=== PATIENT | male | born 1945 | race Two or more races ===

== ENCOUNTER 2020-02-23 18:41 | Inpatient (IN) | payer OTHER, MEDICARE ==
[~2020-02-23] VITALS: Ht 172.7 cm; Wt 92.5 kg
[2020-02-23] MEDS ORDERED: ONDANSETRON HCL 4MG/2ML INJ IV ONE (19:00)
[2020-02-23 19:13] LABS: BG BASE EXCESS -2.3 mmol/L (-2.0-2.0); BG CARBOXYHEMOGLOBIN 0.8 % (0.5-1.5); BG DEOXYHEMOGLOBIN 12.4 % (0.0-5.0); BG FRACTION INSPIRED OXYGEN 100; BG HCO3 ACT 20.2 mmol/L (22.0-26.0); BG METHEMOGLOBIN 0.1 % (0.0-1.5); BG OXYGEN SATURATION 87.5 % (92.0-98.5); BG OXYHEMOGLOBIN 86.7 % (94.0-97.0); BG PCO2 29.3 mmHg (35.0-45.0); BG PH 7.457 (7.350-7.450); BG PO2 52.3 mmHg (75.0-100.0); BG SAMPLE SITE RIGHT RADIAL; BG TOTAL HEMOGLOBIN 14.8 g/dL (12.0-18.0); BG VENT MODE MASK - NRB
[2020-02-23 19:40] LABS: HEMATOCRIT. 42.5 % (42.0-52.0); HEMOGLOBIN. 15.1 g/dL (14.0-18.0); MEAN CORPUSCULAR HEMOGLOBIN 31.7 pg (28.0-32.0); MEAN CORPUSCULAR VOLUME 88.9 fL (80.0-94.0); PLATELET 290 x1000/uL (130-400); RED BLOOD CELL COUNT 4.78 mill/uL (4.7-6.1); RED CELL DISTRIBUTION WIDTH 13.3 % (11.6-14.6)
[2020-02-23 19:45] LABS: CHLORIDE 95 mEq/L (98-107)
[2020-02-23 20:34] LABS: PLATELET ESTIMATE NORMAL
[2020-02-23] MEDS ORDERED: FUROSEMIDE 40MG/4ML VIAL IVP NR (20:45)
[2020-02-23] MEDS ORDERED: ZOLPIDEM TARTRATE 5MG TABLET PO PRN (21:30)
[2020-02-23] MEDS ORDERED: NITROGLYCERIN 0.4MG TABLET SL SL PRN (21:30)
[2020-02-23] MEDS ORDERED: DOCUSATE SODIUM 100MG CAPSULE PO PRN (21:30)
[2020-02-23] MEDS ORDERED: TRAMADOL 50MG TABLET PO PRN (21:30)
[2020-02-23] MEDS ORDERED: POTASSIUM CHLORIDE 20MEQ TABLET SR PO NR (21:30)
[2020-02-23] MEDS ORDERED: ALBUTEROL 6.7GM HFA INHALER ORI PRN (21:30)
[2020-02-23] MEDS ORDERED: CLONIDINE 0.1MG TABLET PO PRN (21:30)
[2020-02-23] MEDS ORDERED: ACETAMINOPHEN 325MG TABLET PO PRN ×2 (21:30)
[2020-02-23] MEDS ORDERED: DEXTROSE 50% WATER 50ML SYRINGE IV PRN (21:30)
[2020-02-23] MEDS ORDERED: LORAZEPAM 0.5MG TABLET PO PRN (21:30)
[2020-02-23] MEDS: GUAIFENESIN 200MG/10ML SUGAR FREE UDC PO PRN (21:55)
[2020-02-23] MEDS: MAGNESIUM/ALUMINUM HYDROXIDE/SIMETHICONE 30ML UDC PO PRN (21:55)
[2020-02-23 22:04] LABS: D-DIMER 1.04 mg/L FEU (<0.50)
[2020-02-23] MEDS: GUAIFENESIN/DM 600MG/30MG ER TAB 12HR PO SCH (22:31)
[2020-02-23] MEDS ORDERED: AZITHROMYCIN 500 MG in DEXT 5% WATER 250 ML IV SCH (23:00)
[2020-02-23 23:11] LABS: CREATINE KINASE 48 IU/L (39-308)
[2020-02-23 23:12] LABS: CREATINE KINASE MB FRACTION 1.6 ng/mL (0.5-3.6)
[2020-02-24] VITALS (13 sets, daily range): BP systolic 98–120; BP diastolic 60–72
[2020-02-24 04:30] LABS: HEMATOCRIT. 41.6 % (42.0-52.0); HEMOGLOBIN. 14.4 g/dL (14.0-18.0); MEAN CORPUSCULAR HEMOGLOBIN 31.1 pg (28.0-32.0); MEAN CORPUSCULAR VOLUME 89.5 fL (80.0-94.0); MEAN PLATELET VOLUME 8.3 fl (7.4-10.4); PLATELET 278 x1000/uL (130-400); RED BLOOD CELL COUNT 4.65 mill/uL (4.7-6.1); RED CELL DISTRIBUTION WIDTH 13.5 % (11.6-14.6)
[2020-02-24 04:34] LABS: CHLORIDE 94 mEq/L (98-107)
[2020-02-24 04:41] LABS: PHOSPHORUS 3.2 mg/dL (2.5-4.9)
[2020-02-24 04:42] LABS: CREATINE KINASE 43 IU/L (39-308)
[2020-02-24 04:45] LABS: CREATINE KINASE MB FRACTION < 1.0 ng/mL (0.5-3.6)
[2020-02-24] MEDS: BLOOD SUGAR DIAGNOSTIC STRIP TEST SCH ×4 (06:29→20:07)
[2020-02-24] MEDS: INSULIN LISPRO 100 UNITS/ML SUBCUT SCH ×4 (06:30→20:55)
[2020-02-24 07:11] LABS: PLATELET ESTIMATE NORMAL
[2020-02-24] MEDS: FUROSEMIDE 40MG/4ML VIAL IVP SCH ×2 (08:37→20:06)
[2020-02-24] MEDS: SPIRONOLACTONE 25MG TABLET PO SCH ×2 (08:42→20:07)
[2020-02-24] MEDS: GUAIFENESIN/DM 600MG/30MG ER TAB 12HR PO SCH ×2 (08:43→20:06)
[2020-02-24] MEDS: FAMOTIDINE 20MG TABLET PO SCH ×2 (08:43→20:07)
[2020-02-24] MEDS: ZINC SULFATE 220 MG ( 50 ) CAPSULE PO SCH (08:43)
[2020-02-24] MEDS: ASPIRIN 325MG EC TABLET PO SCH (08:43)
[2020-02-24] MEDS: ASCORBIC ACID 500 MG TABLET PO SCH ×2 (08:49→20:06)
[2020-02-24] MEDS ORDERED: ENOXAPARIN 40MG/0.4ML SYR SUBCUT SCH (09:00)
[2020-02-24] MEDS: MAGNESIUM/ALUMINUM HYDROXIDE/SIMETHICONE 30ML UDC PO PRN (10:50)
[2020-02-24] MEDS: ONDANSETRON HCL 4MG/2ML INJ IV PRN (10:51)
[2020-02-24 11:21] LABS: CLARITY URINE CLEAR (CLEAR); COLOR URINE YELLOW (YELLOW); KETONES URINE NEGATIVE (NEGATIVE); LEUKOCYTE ESTERASE URINE NEGATIVE (NEGATIVE); NITRITE URINE NEGATIVE (NEGATIVE); OCCULT BLOOD URINE NEGATIVE (NEGATIVE); PROTEIN URINE NEGATIVE (NEGATIVE); SPECIFIC GRAVITY URINE 1.011 (1.005-1.030); UROBILINOGEN URINE 0.2 E.U./dL (0.2-1.0)
[2020-02-24 11:45] LABS: *AMPHETAMINES SCREEN URINE NEGATIVE (NEGATIVE); *BARBITURATES SCREEN URINE NEGATIVE (NEGATIVE); *BENZODIAZEPINES SCREEN URINE NEGATIVE (NEGATIVE)
[2020-02-24 11:46] LABS: *COCAINE SCREEN URINE NEGATIVE (NEGATIVE); METHADONE URINE SCREEN NEGATIVE (NEGATIVE); OPIATES URINE SCREEN NEGATIVE (NEGATIVE); PHENCYCLIDINE URINE SCREEN NEGATIVE (NEGATIVE)
[2020-02-24 11:47] LABS: CANNABINOID URINE SCREEN NEGATIVE (NEGATIVE)
[2020-02-24] MEDS ORDERED: ALBUTEROL 6.7GM HFA INHALER ORI PRN (15:15)
[2020-02-24] MEDS ORDERED: DEXAMETHASONE 10 MG/ML VIAL PO SCH (15:15)
[2020-02-24] MEDS ORDERED: ENOXAPARIN 60MG/0.6ML SYR SUBCUT NR (15:30)
[2020-02-24] MEDS: DEXAMETHASONE 4MG TABLET PO SCH (16:29)
[2020-02-24] MEDS: AZITHROMYCIN 500 MG in DEXT 5% WATER 250 ML IV SCH (18:00)
[2020-02-24] MEDS: ENOXAPARIN 100MG/ML SYR SUBCUT SCH (20:06)
[2020-02-24 23:53] LABS: BG BASE EXCESS 2.9 mmol/L (-2.0-2.0); BG CARBOXYHEMOGLOBIN 0.5 % (0.5-1.5); BG DEOXYHEMOGLOBIN 12.5 % (0.0-5.0); BG FRACTION INSPIRED OXYGEN 100; BG HCO3 ACT 27.5 mmol/L (22.0-26.0); BG METHEMOGLOBIN 0.2 % (0.0-1.5); BG OXYGEN SATURATION 87.4 % (92.0-98.5); BG OXYHEMOGLOBIN 86.8 % (94.0-97.0); BG PCO2 42.1 mmHg (35.0-45.0); BG PH 7.433 (7.350-7.450); BG PO2 52.3 mmHg (75.0-100.0); BG SAMPLE SITE LEFT RADIAL; BG TOTAL HEMOGLOBIN 14.4 g/dL (12.0-18.0); BG VENT MODE MASK - NRB
[2020-02-25] VITALS (46 sets, daily range): BP systolic 97–135; BP diastolic 45–81
[2020-02-25 05:29] LABS: INR 1.1; PROTHROMBIN TIME 11.8 sec (9.6-11.0)
[2020-02-25] MEDS: BLOOD SUGAR DIAGNOSTIC STRIP TEST SCH ×4 (05:56→20:13)
[2020-02-25] MEDS: INSULIN LISPRO 100 UNITS/ML SUBCUT SCH ×5 (06:05→21:47)
[2020-02-25 10:51] LABS: BG BASE EXCESS 3.5 mmol/L (-2.0-2.0); BG CARBOXYHEMOGLOBIN 0.5 % (0.5-1.5); BG DEOXYHEMOGLOBIN 11.4 % (0.0-5.0); BG FRACTION INSPIRED OXYGEN 100; BG HCO3 ACT 27.3 mmol/L (22.0-26.0); BG METHEMOGLOBIN 0.3 % (0.0-1.5); BG OXYGEN SATURATION 88.5 % (92.0-98.5); BG OXYHEMOGLOBIN 87.8 % (94.0-97.0); BG PCO2 38.8 mmHg (35.0-45.0); BG PH 7.465 (7.350-7.450); BG PO2 51.2 mmHg (75.0-100.0); BG SAMPLE SITE RIGHT RADIAL; BG TOTAL HEMOGLOBIN 15.3 g/dL (12.0-18.0); BG VENT MODE MASK - NRB
[2020-02-25] MEDS: GUAIFENESIN/DM 600MG/30MG ER TAB 12HR PO SCH ×2 (12:04→20:12)
[2020-02-25] MEDS: DEXAMETHASONE 4MG TABLET PO SCH (12:04)
[2020-02-25] MEDS: ENOXAPARIN 100MG/ML SYR SUBCUT SCH ×2 (12:04→20:13)
[2020-02-25] MEDS: FAMOTIDINE 20MG TABLET PO SCH ×2 (12:04→20:12)
[2020-02-25] MEDS: ZINC SULFATE 220 MG ( 50 ) CAPSULE PO SCH (12:04)
[2020-02-25] MEDS: ASCORBIC ACID 500 MG TABLET PO SCH ×2 (12:04→20:12)
[2020-02-25] MEDS: ASPIRIN 325MG EC TABLET PO SCH (12:05)
[2020-02-25] MEDS: SPIRONOLACTONE 25MG TABLET PO SCH ×2 (12:05→20:13)
[2020-02-25] MEDS: FUROSEMIDE 40MG/4ML VIAL IVP SCH ×2 (12:05→20:12)
[2020-02-25] MEDS ORDERED: REMDESIVIR 200 MG in SODIUM CHLORIDE 0.9% 250 ML IV NR (12:30)
[2020-02-25] MEDS: AZITHROMYCIN 500 MG in DEXT 5% WATER 250 ML IV SCH (19:40)
[2020-02-26] VITALS (30 sets, daily range): BP systolic 90–187; BP diastolic 49–92
[2020-02-26] MEDS: BLOOD SUGAR DIAGNOSTIC STRIP TEST SCH ×4 (05:55→21:59)
[2020-02-26] MEDS: INSULIN LISPRO 100 UNITS/ML SUBCUT SCH ×4 (06:39→21:00)
[2020-02-26] MEDS: GUAIFENESIN/DM 600MG/30MG ER TAB 12HR PO SCH ×2 (10:18→21:58)
[2020-02-26] MEDS: FAMOTIDINE 20MG TABLET PO SCH ×2 (10:18→21:58)
[2020-02-26] MEDS: DEXAMETHASONE 4MG TABLET PO SCH (10:18)
[2020-02-26] MEDS: ZINC SULFATE 220 MG ( 50 ) CAPSULE PO SCH (10:18)
[2020-02-26] MEDS: ASCORBIC ACID 500 MG TABLET PO SCH ×2 (10:19→21:58)
[2020-02-26] MEDS: ASPIRIN 325MG EC TABLET PO SCH (10:19)
[2020-02-26] MEDS: ENOXAPARIN 100MG/ML SYR SUBCUT SCH ×2 (10:19→21:59)
[2020-02-26] MEDS: SPIRONOLACTONE 25MG TABLET PO SCH ×2 (10:19→21:59)
[2020-02-26] MEDS: FUROSEMIDE 40MG/4ML VIAL IVP SCH ×2 (10:19→22:00)
[2020-02-26] MEDS: REMDESIVIR 100 MG in SODIUM CHLORIDE 0.9% 250 ML IV SCH (12:37)
[2020-02-26] MEDS: AZITHROMYCIN 500 MG in DEXT 5% WATER 250 ML IV SCH (17:14)
[2020-02-27] VITALS (47 sets, daily range): BP systolic 91–159; BP diastolic 42–93
[2020-02-27] MEDS: BLOOD SUGAR DIAGNOSTIC STRIP TEST SCH ×4 (06:48→21:29)
[2020-02-27] MEDS: INSULIN LISPRO 100 UNITS/ML SUBCUT SCH ×4 (08:10→21:33)
[2020-02-27] MEDS: DEXAMETHASONE 4MG TABLET PO SCH (09:26)
[2020-02-27] MEDS: FUROSEMIDE 40MG/4ML VIAL IVP SCH ×2 (09:27→21:06)
[2020-02-27] MEDS: ZINC SULFATE 220 MG ( 50 ) CAPSULE PO SCH (09:28)
[2020-02-27] MEDS: ASCORBIC ACID 500 MG TABLET PO SCH ×2 (09:28→21:07)
[2020-02-27] MEDS: ENOXAPARIN 100MG/ML SYR SUBCUT SCH ×2 (09:28→21:07)
[2020-02-27] MEDS: SPIRONOLACTONE 25MG TABLET PO SCH ×2 (09:28→21:07)
[2020-02-27] MEDS: FAMOTIDINE 20MG TABLET PO SCH ×2 (09:28→21:07)
[2020-02-27] MEDS: ASPIRIN 325MG EC TABLET PO SCH (09:28)
[2020-02-27] MEDS: GUAIFENESIN/DM 600MG/30MG ER TAB 12HR PO SCH ×2 (09:28→20:42)
[2020-02-27 09:54] LABS: HEMOGLOBIN. 15.3 g/dL (14.0-18.0); MEAN CORPUSCULAR HEMOGLOBIN 32.1 pg (28.0-32.0); MEAN CORPUSCULAR VOLUME 92.6 fL (80.0-94.0); PLATELET 376 x1000/uL (130-400); RED BLOOD CELL COUNT 4.76 mill/uL (4.7-6.1); RED CELL DISTRIBUTION WIDTH 13.7 % (11.6-14.6)
[2020-02-27 10:03] LABS: CHLORIDE 96 mEq/L (98-107)
[2020-02-27] MEDS: REMDESIVIR 100 MG in SODIUM CHLORIDE 0.9% 250 ML IV SCH (10:54)
[2020-02-27 12:34] LABS: PLATELET ESTIMATE NORMAL
[2020-02-27 15:31] LABS: BG CARBOXYHEMOGLOBIN 0.8 % (0.5-1.5); BG DEOXYHEMOGLOBIN 16.4 % (0.0-5.0); BG FRACTION INSPIRED OXYGEN 99.8; BG HCO3 ACT 26.5 mmol/L (22.0-26.0); BG METHEMOGLOBIN 0.1 % (0.0-1.5); BG OXYGEN SATURATION 83.5 % (92.0-98.5); BG OXYHEMOGLOBIN 82.7 % (94.0-97.0); BG PCO2 33.7 mmHg (35.0-45.0); BG PH 7.514 (7.350-7.450); BG PO2 45.6 mmHg (75.0-100.0); BG SAMPLE SITE RIGHT BRACHIAL; BG TOTAL HEMOGLOBIN 14.9 g/dL (12.0-18.0); BG VENT MODE MASK - NRB
[2020-02-27] MEDS: PROPOFOL 10MG/ML 100ML 100 ML IV PRN ×2 (19:01→21:26)
[2020-02-27] MEDS ORDERED: NOREPINEPHRINE 8 MG in DEXT 5% WATER 242 ML IV PRN (19:15)
[2020-02-27 20:41] LABS: BG BASE EXCESS 1.8 mmol/L (-2.0-2.0); BG CARBOXYHEMOGLOBIN 0.7 % (0.5-1.5); BG DEOXYHEMOGLOBIN 1.5 % (0.0-5.0); BG FRACTION INSPIRED OXYGEN 100; BG HCO3 ACT 25.6 mmol/L (22.0-26.0); BG METHEMOGLOBIN 0.2 % (0.0-1.5); BG OXYGEN SATURATION 98.5 % (92.0-98.5); BG OXYHEMOGLOBIN 97.6 % (94.0-97.0); BG PCO2 37.5 mmHg (35.0-45.0); BG PH 7.452 (7.350-7.450); BG PIP 24 cmH2O; BG PO2 131.5 mmHg (75.0-100.0); BG SAMPLE SITE RIGHT BRACHIAL; BG TIDAL VOLUME(mL) 500 mL; BG TOTAL HEMOGLOBIN 14.9 g/dL (12.0-18.0); BG VENT MODE PRVC16; BG VENT RATE 16 set
[2020-02-27] MEDS: POTASSIUM CHLORIDE INJ 40 MEQ in DEXT 5% WATER 250 ML IV NR ×2 (20:57→21:57)
[2020-02-27] MEDS: AZITHROMYCIN 500 MG in DEXT 5% WATER 250 ML IV SCH (21:05)
[2020-02-28] VITALS (96 sets, daily range): BP systolic 83–128; BP diastolic 36–87
[2020-02-28] MEDS: PROPOFOL 10MG/ML 100ML 100 ML IV PRN ×3 (02:06→20:28)
[2020-02-28] MEDS: BLOOD SUGAR DIAGNOSTIC STRIP TEST SCH ×4 (05:16→23:54)
[2020-02-28] MEDS: INSULIN LISPRO 100 UNITS/ML SUBCUT SCH ×4 (05:17→23:53)
[2020-02-28 05:50] LABS: CHLORIDE 98 mEq/L (98-107)
[2020-02-28 05:52] LABS: HEMATOCRIT. 41.3 % (42.0-52.0); HEMOGLOBIN. 14.2 g/dL (14.0-18.0); MEAN CORPUSCULAR HEMOGLOBIN 32.4 pg (28.0-32.0); MEAN CORPUSCULAR VOLUME 94.4 fL (80.0-94.0); PLATELET 318 x1000/uL (130-400); RED BLOOD CELL COUNT 4.38 mill/uL (4.7-6.1); RED CELL DISTRIBUTION WIDTH 14.2 % (11.6-14.6)
[2020-02-28] MEDS: FUROSEMIDE 40MG/4ML VIAL IVP SCH ×2 (08:19→21:04)
[2020-02-28] MEDS: DEXAMETHASONE 4MG TABLET PO SCH (08:20)
[2020-02-28] MEDS: SPIRONOLACTONE 25MG TABLET PO SCH ×2 (08:21→21:05)
[2020-02-28] MEDS: FAMOTIDINE 20MG TABLET PO SCH ×2 (08:21→21:05)
[2020-02-28] MEDS: ZINC SULFATE 220 MG ( 50 ) CAPSULE PO SCH (08:21)
[2020-02-28] MEDS: ENOXAPARIN 100MG/ML SYR SUBCUT SCH ×2 (08:22→21:04)
[2020-02-28] MEDS: ASPIRIN 325MG EC TABLET PO SCH (08:33)
[2020-02-28] MEDS: GUAIFENESIN/DM 600MG/30MG ER TAB 12HR PO SCH ×2 (08:34→21:00)
[2020-02-28] MEDS: ASCORBIC ACID 500 MG TABLET PO SCH ×2 (08:34→21:04)
[2020-02-28] MEDS ORDERED: LIDOCAINE HCL 1% 20ML VIAL (Pyxis) INJ ONE (09:33)
[2020-02-28] MEDS: IPRATROPIUM/ALBUTEROL 0.5-3(2.5)MG/3ML NEB HHN SCH ×4 (10:15→20:45)
[2020-02-28 10:33] LABS: BG BASE EXCESS 2.7 mmol/L (-2.0-2.0); BG CARBOXYHEMOGLOBIN 1.1 % (0.5-1.5); BG DEOXYHEMOGLOBIN 6.5 % (0.0-5.0); BG FRACTION INSPIRED OXYGEN 100; BG HCO3 ACT 27.1 mmol/L (22.0-26.0); BG METHEMOGLOBIN 0.3 % (0.0-1.5); BG OXYGEN SATURATION 93.4 % (92.0-98.5); BG OXYHEMOGLOBIN 92.1 % (94.0-97.0); BG PCO2 41.1 mmHg (35.0-45.0); BG PH 7.437 (7.350-7.450); BG SAMPLE SITE LEFT RADIAL; BG TIDAL VOLUME(mL) 500 mL; BG TOTAL HEMOGLOBIN 14.9 g/dL (12.0-18.0); BG VENT MODE VENT - A/C; BG VENT RATE 14 set
[2020-02-28] MEDS: REMDESIVIR 100 MG in SODIUM CHLORIDE 0.9% 250 ML IV SCH (10:56)
[2020-02-28] MEDS ORDERED: NOREPINEPHRINE 32 MG in DEXT 5% WATER 468 ML IV PRN (11:30)
[2020-02-28 11:54] LABS: PLATELET ESTIMATE NORMAL
[2020-02-28] MEDS: FENTANYL CITRATE/PF 1,000 MCG in SODIUM CHLORIDE 0.9% 80 ML IV PRN (14:48)
[2020-02-29] VITALS (102 sets, daily range): BP systolic 52–188; BP diastolic 28–152
[2020-02-29] MEDS: IPRATROPIUM/ALBUTEROL 0.5-3(2.5)MG/3ML NEB HHN SCH ×4 (01:05→21:10)
[2020-02-29] MEDS: FENTANYL CITRATE/PF 1,000 MCG in SODIUM CHLORIDE 0.9% 80 ML IV PRN (01:19)
[2020-02-29] MEDS: PROPOFOL 10MG/ML 100ML 100 ML IV PRN ×2 (03:25→09:16)
[2020-02-29 05:58] LABS: CHLORIDE 102 mEq/L (98-107)
[2020-02-29 05:59] LABS: HEMOGLOBIN. 14.6 g/dL (14.0-18.0); MEAN CORPUSCULAR HEMOGLOBIN 31.6 pg (28.0-32.0); MEAN CORPUSCULAR VOLUME 93.4 fL (80.0-94.0); MEAN PLATELET VOLUME 8.9 fl (7.4-10.4); PLATELET 336 x1000/uL (130-400); RED BLOOD CELL COUNT 4.61 mill/uL (4.7-6.1); RED CELL DISTRIBUTION WIDTH 13.8 % (11.6-14.6)
[2020-02-29] MEDS: INSULIN LISPRO 100 UNITS/ML SUBCUT SCH ×3 (06:00→17:43)
[2020-02-29] MEDS: BLOOD SUGAR DIAGNOSTIC STRIP TEST SCH ×3 (06:17→17:15)
[2020-02-29] MEDS: GUAIFENESIN/DM 600MG/30MG ER TAB 12HR PO SCH ×2 (09:00→21:00)
[2020-02-29] MEDS: ASPIRIN 325MG EC TABLET PO SCH (09:00)
[2020-02-29] MEDS: ZINC SULFATE 220 MG ( 50 ) CAPSULE PO SCH (09:05)
[2020-02-29] MEDS: FAMOTIDINE 20MG TABLET PO SCH ×2 (09:05→21:00)
[2020-02-29] MEDS: DEXAMETHASONE 10 MG/ML VIAL IV SCH (09:05)
[2020-02-29] MEDS: FUROSEMIDE 40MG/4ML VIAL IVP SCH ×2 (09:05→21:37)
[2020-02-29] MEDS: ASCORBIC ACID 500 MG TABLET PO SCH ×2 (09:06→21:38)
[2020-02-29] MEDS: SPIRONOLACTONE 25MG TABLET PO SCH ×2 (09:06→21:28)
[2020-02-29] MEDS: ENOXAPARIN 100MG/ML SYR SUBCUT SCH ×2 (09:07→21:37)
[2020-02-29 09:52] LABS: BG BASE EXCESS 1.3 mmol/L (-2.0-2.0); BG CARBOXYHEMOGLOBIN 0.6 % (0.5-1.5); BG DEOXYHEMOGLOBIN 2.4 % (0.0-5.0); BG FRACTION INSPIRED OXYGEN 100; BG HCO3 ACT 25.7 mmol/L (22.0-26.0); BG METHEMOGLOBIN 0.3 % (0.0-1.5); BG OXYGEN SATURATION 97.6 % (92.0-98.5); BG OXYHEMOGLOBIN 96.7 % (94.0-97.0); BG PCO2 40.1 mmHg (35.0-45.0); BG PH 7.425 (7.350-7.450); BG PO2 100.7 mmHg (75.0-100.0); BG SAMPLE SITE RIGHT RADIAL; BG TIDAL VOLUME(mL) 500 mL; BG TOTAL HEMOGLOBIN 15.3 g/dL (12.0-18.0); BG VENT MODE VENT - A/C PRVC; BG VENT RATE 14 set
[2020-02-29 10:44] LABS: PLATELET ESTIMATE NORMAL
[2020-02-29] MEDS ORDERED: DILTIAZEM HCL 5MG/ML 5ML VIAL IV NR (11:17)
[2020-02-29] MEDS ORDERED: DILTIAZEM HCL 5MG/ML 5ML VIAL IV ONE (11:23)
[2020-02-29] MEDS ORDERED: SODIUM CHLORIDE 0.9% 500 ML IV ONE (12:00)
[2020-02-29] MEDS: REMDESIVIR 100 MG in SODIUM CHLORIDE 0.9% 250 ML IV SCH (13:18)
[2020-02-29] MEDS: DILTIAZEM HCL 125 MG in DEXT 5% WATER 100 ML IV PRN ×2 (13:19→18:32)
[2020-02-29] MEDS: PHENYLEPHRINE 40 MG in DEXT 5% WATER 246 ML IV PRN ×2 (13:23→21:40)
[2020-02-29] MEDS: DILTIAZEM HCL 30MG TABLET PO SCH ×2 (14:00→21:40)
[2020-02-29] MEDS ORDERED: PROPOFOL 10MG/ML 100ML 100 ML IV PRN (19:45)
[2020-02-29] MEDS ORDERED: ASPI-1497 PO (21:00)
[2020-02-29] MEDS ORDERED: OLME1TAB27 PO (21:00)
[2020-03-01] VITALS (96 sets, daily range): BP systolic 87–155; BP diastolic 52–86
[2020-03-01] MEDS: PROPOFOL 10MG/ML 100ML 100 ML IV PRN ×5 (00:38→20:48)
[2020-03-01] MEDS: BLOOD SUGAR DIAGNOSTIC STRIP TEST SCH ×5 (01:27→23:31)
[2020-03-01] MEDS: INSULIN LISPRO 100 UNITS/ML SUBCUT SCH ×5 (01:30→23:39)
[2020-03-01] MEDS: PHENYLEPHRINE 40 MG in DEXT 5% WATER 246 ML IV PRN ×3 (03:45→17:58)
[2020-03-01] MEDS: DILTIAZEM HCL 125 MG in DEXT 5% WATER 100 ML IV PRN ×3 (03:45→23:47)
[2020-03-01] MEDS: DILTIAZEM HCL 30MG TABLET PO SCH ×3 (05:33→20:43)
[2020-03-01] MEDS: FENTANYL CITRATE/PF 1,000 MCG in SODIUM CHLORIDE 0.9% 80 ML IV PRN (05:49)
[2020-03-01 05:55] LABS: CHLORIDE 102 mEq/L (98-107)
[2020-03-01 06:16] LABS: HEMATOCRIT. 45.3 % (42.0-52.0); HEMOGLOBIN. 15.1 g/dL (14.0-18.0); MEAN CORPUSCULAR HEMOGLOBIN 30.9 pg (28.0-32.0); MEAN CORPUSCULAR VOLUME 92.6 fL (80.0-94.0); MEAN PLATELET VOLUME 9.3 fl (7.4-10.4); PLATELET 426 x1000/uL (130-400); RED BLOOD CELL COUNT 4.89 mill/uL (4.7-6.1)
[2020-03-01] MEDS: GUAIFENESIN/DM 600MG/30MG ER TAB 12HR PO SCH ×2 (09:00→20:42)
[2020-03-01] MEDS: DEXAMETHASONE 10 MG/ML VIAL IV SCH (09:23)
[2020-03-01] MEDS: FUROSEMIDE 40MG/4ML VIAL IVP SCH (09:23)
[2020-03-01] MEDS: ACETAMINOPHEN 650MG/20.3ML UDC NG PRN (09:23)
[2020-03-01] MEDS: ZINC SULFATE 220 MG ( 50 ) CAPSULE PO SCH (09:23)
[2020-03-01] MEDS: ASPIRIN 325MG EC TABLET PO SCH (09:23)
[2020-03-01] MEDS: ASCORBIC ACID 500 MG TABLET PO SCH ×2 (09:23→20:42)
[2020-03-01 09:30] LABS: BG DEOXYHEMOGLOBIN 8.4 % (0.0-5.0); BG FRACTION INSPIRED OXYGEN 100; BG HCO3 ACT 26.5 mmol/L (22.0-26.0); BG METHEMOGLOBIN 0.4 % (0.0-1.5); BG OXYGEN SATURATION 91.5 % (92.0-98.5); BG OXYHEMOGLOBIN 90.2 % (94.0-97.0); BG PCO2 40.8 mmHg (35.0-45.0); BG PO2 58.1 mmHg (75.0-100.0); BG SAMPLE SITE LEFT RADIAL; BG TIDAL VOLUME(mL) 500 mL; BG TOTAL HEMOGLOBIN 15.3 g/dL (12.0-18.0); BG VENT MODE VENT - A/C; BG VENT RATE 14 set
[2020-03-01] MEDS ORDERED: DOCUSATE SODIUM 100MG CAPSULE NG PRN (09:30)
[2020-03-01] MEDS: IPRATROPIUM/ALBUTEROL 0.5-3(2.5)MG/3ML NEB HHN SCH ×2 (09:33→21:25)
[2020-03-01] MEDS: FAMOTIDINE 20MG TABLET PO SCH ×2 (10:22→20:42)
[2020-03-01] MEDS: ENOXAPARIN 100MG/ML SYR SUBCUT SCH ×2 (10:22→20:42)
[2020-03-01] MEDS: SPIRONOLACTONE 25MG TABLET PO SCH (10:29)
[2020-03-01 13:46] LABS: PLATELET ESTIMATE INCREASED
[2020-03-01] MEDS ORDERED: VANCOMYCIN 1500MG in DEXTROSE 5% WATER 250ML IV NR (16:00)
[2020-03-01] MEDS: CEFEPIME 1,000 MG in DEXTROSE 5% WATER 50 ML IV SCH (16:09)
[2020-03-02] VITALS (97 sets, daily range): BP systolic 94–132; BP diastolic 55–79
[2020-03-02] MEDS: IPRATROPIUM/ALBUTEROL 0.5-3(2.5)MG/3ML NEB HHN SCH ×4 (00:20→21:50)
[2020-03-02] MEDS: PHENYLEPHRINE 40 MG in DEXT 5% WATER 246 ML IV PRN ×4 (00:36→22:23)
[2020-03-02] MEDS: PROPOFOL 10MG/ML 100ML 100 ML IV PRN ×4 (02:57→22:20)
[2020-03-02] MEDS: CEFEPIME 1,000 MG in DEXTROSE 5% WATER 50 ML IV SCH ×2 (03:31→15:01)
[2020-03-02] MEDS: ACETAMINOPHEN 650MG/20.3ML UDC NG PRN ×2 (03:42→16:30)
[2020-03-02] MEDS: FENTANYL CITRATE/PF 1,000 MCG in SODIUM CHLORIDE 0.9% 80 ML IV PRN (05:01)
[2020-03-02] MEDS: DILTIAZEM HCL 30MG TABLET PO SCH ×3 (05:18→21:04)
[2020-03-02] MEDS: BLOOD SUGAR DIAGNOSTIC STRIP TEST SCH ×3 (05:18→17:37)
[2020-03-02 05:22] LABS: HEMATOCRIT. 41.6 % (42.0-52.0); MEAN CORPUSCULAR HEMOGLOBIN 30.8 pg (28.0-32.0); MEAN CORPUSCULAR VOLUME 91.9 fL (80.0-94.0); MEAN PLATELET VOLUME 9.1 fl (7.4-10.4); PLATELET 355 x1000/uL (130-400); RED BLOOD CELL COUNT 4.53 mill/uL (4.7-6.1); RED CELL DISTRIBUTION WIDTH 13.9 % (11.6-14.6)
[2020-03-02] MEDS: INSULIN LISPRO 100 UNITS/ML SUBCUT SCH ×3 (05:55→17:47)
[2020-03-02] MEDS ORDERED: VANCOMYCIN 750 MG PREMIX 150 ML IV SCH (06:00)
[2020-03-02] MEDS: ZINC SULFATE 220 MG ( 50 ) CAPSULE PO SCH (08:38)
[2020-03-02] MEDS: FAMOTIDINE 20MG TABLET PO SCH ×2 (08:38→21:03)
[2020-03-02] MEDS: ASCORBIC ACID 500 MG TABLET PO SCH ×2 (08:38→21:04)
[2020-03-02] MEDS: ENOXAPARIN 100MG/ML SYR SUBCUT SCH ×2 (08:38→21:05)
[2020-03-02] MEDS: GUAIFENESIN/DM 600MG/30MG ER TAB 12HR PO SCH ×2 (08:39→21:00)
[2020-03-02] MEDS: DEXAMETHASONE 10 MG/ML VIAL IV SCH (08:39)
[2020-03-02] MEDS: ASPIRIN 81MG EC TABLET PO SCH ×2 (08:39→16:31)
[2020-03-02 09:16] LABS: BG BASE EXCESS 5.9 mmol/L (-2.0-2.0); BG CARBOXYHEMOGLOBIN 0.9 % (0.5-1.5); BG DEOXYHEMOGLOBIN 1.5 % (0.0-5.0); BG FRACTION INSPIRED OXYGEN 100; BG HCO3 ACT 32.1 mmol/L (22.0-26.0); BG METHEMOGLOBIN 0.3 % (0.0-1.5); BG OXYGEN SATURATION 98.5 % (92.0-98.5); BG OXYHEMOGLOBIN 97.3 % (94.0-97.0); BG PCO2 52.8 mmHg (35.0-45.0); BG PH 7.402 (7.350-7.450); BG PO2 125.2 mmHg (75.0-100.0); BG SAMPLE SITE RIGHT RADIAL; BG TIDAL VOLUME(mL) 500 mL; BG VENT MODE VENT- PRVC; BG VENT RATE 14 set
[2020-03-02 11:04] LABS: PLATELET ESTIMATE NORMAL
[2020-03-02] MEDS ORDERED: PROPOFOL 10MG/ML 100ML 100 ML IV PRN (14:00)
[2020-03-02] MEDS: DILTIAZEM HCL 125 MG in DEXT 5% WATER 100 ML IV PRN (14:59)
[2020-03-02] MEDS: VANCOMYCIN 1250MG in DEXTROSE 5% WATER 250ML IV SCH (17:42)
[2020-03-03] VITALS (94 sets, daily range): BP systolic 91–171; BP diastolic 52–89
[2020-03-03] MEDS: BLOOD SUGAR DIAGNOSTIC STRIP TEST SCH ×4 (00:10→18:11)
[2020-03-03] MEDS: INSULIN LISPRO 100 UNITS/ML SUBCUT SCH ×4 (00:26→18:17)
[2020-03-03] MEDS: IPRATROPIUM/ALBUTEROL 0.5-3(2.5)MG/3ML NEB HHN SCH ×4 (03:05→20:50)
[2020-03-03] MEDS: PROPOFOL 10MG/ML 100ML 100 ML IV PRN ×5 (03:14→21:28)
[2020-03-03] MEDS: CEFEPIME 1,000 MG in DEXTROSE 5% WATER 50 ML IV SCH ×2 (03:51→16:04)
[2020-03-03] MEDS: FENTANYL CITRATE/PF 1,000 MCG in SODIUM CHLORIDE 0.9% 80 ML IV PRN (04:29)
[2020-03-03] MEDS: DILTIAZEM HCL 30MG TABLET PO SCH ×3 (05:35→21:24)
[2020-03-03] MEDS: GUAIFENESIN/DM 600MG/30MG ER TAB 12HR PO SCH ×2 (09:00→21:26)
[2020-03-03 09:43] LABS: BG BASE EXCESS 3.1 mmol/L (-2.0-2.0); BG CARBOXYHEMOGLOBIN 0.8 % (0.5-1.5); BG DEOXYHEMOGLOBIN 3.5 % (0.0-5.0); BG FRACTION INSPIRED OXYGEN 100; BG HCO3 ACT 28.7 mmol/L (22.0-26.0); BG METHEMOGLOBIN 0.3 % (0.0-1.5); BG OXYGEN SATURATION 96.5 % (92.0-98.5); BG OXYHEMOGLOBIN 95.4 % (94.0-97.0); BG PCO2 47.3 mmHg (35.0-45.0); BG PH 7.401 (7.350-7.450); BG PO2 83.8 mmHg (75.0-100.0); BG SAMPLE SITE RIGHT RADIAL; BG TIDAL VOLUME(mL) 450 mL; BG TOTAL HEMOGLOBIN 14.3 g/dL (12.0-18.0); BG VENT MODE VENT - A/C-PRVC; BG VENT RATE 16 set
[2020-03-03] MEDS: ASPIRIN 81MG TABLET NG SCH ×2 (09:59→21:23)
[2020-03-03] MEDS: ENOXAPARIN 100MG/ML SYR SUBCUT SCH ×2 (10:00→21:26)
[2020-03-03] MEDS: FAMOTIDINE 20MG TABLET PO SCH ×2 (10:00→21:23)
[2020-03-03] MEDS: ASCORBIC ACID 500 MG TABLET PO SCH ×2 (10:00→21:23)
[2020-03-03] MEDS: ZINC SULFATE 220 MG ( 50 ) CAPSULE PO SCH (10:00)
[2020-03-03] MEDS: DEXAMETHASONE 10 MG/ML VIAL IV SCH (10:00)
[2020-03-03] MEDS: ACETAMINOPHEN 650MG/20.3ML UDC NG PRN (10:00)
[2020-03-03] MEDS: VANCOMYCIN 1250MG in DEXTROSE 5% WATER 250ML IV SCH (12:56)
[2020-03-03] MEDS: PHENYLEPHRINE 40 MG in DEXT 5% WATER 246 ML IV PRN (14:13)
[2020-03-03] MEDS: DILTIAZEM HCL 125 MG in DEXT 5% WATER 100 ML IV PRN (17:06)
[2020-03-04] VITALS (95 sets, daily range): BP systolic 95–135; BP diastolic 50–86
[2020-03-04] MEDS: BLOOD SUGAR DIAGNOSTIC STRIP TEST SCH ×4 (00:23→18:05)
[2020-03-04] MEDS: IPRATROPIUM/ALBUTEROL 0.5-3(2.5)MG/3ML NEB HHN SCH ×2 (00:51→21:05)
[2020-03-04] MEDS: CEFEPIME 1,000 MG in DEXTROSE 5% WATER 50 ML IV SCH ×2 (04:32→15:11)
[2020-03-04] MEDS: FENTANYL CITRATE/PF 1,000 MCG in SODIUM CHLORIDE 0.9% 80 ML IV PRN ×2 (04:34→18:01)
[2020-03-04] MEDS: PROPOFOL 10MG/ML 100ML 100 ML IV PRN ×5 (05:15→23:00)
[2020-03-04] MEDS: INSULIN LISPRO 100 UNITS/ML SUBCUT SCH ×4 (05:47→18:04)
[2020-03-04] MEDS: DILTIAZEM HCL 30MG TABLET PO SCH ×3 (05:47→20:36)
[2020-03-04] MEDS: VANCOMYCIN 1250MG in DEXTROSE 5% WATER 250ML IV SCH (05:48)
[2020-03-04 06:08] LABS: CHLORIDE 99 mEq/L (98-107)
[2020-03-04 06:27] LABS: VANCOMYCIN TROUGH 11.7 ug/mL (5.0-10.0)
[2020-03-04] MEDS: GUAIFENESIN/DM 600MG/30MG ER TAB 12HR PO SCH ×2 (09:00→20:35)
[2020-03-04] MEDS: ASPIRIN 81MG TABLET NG SCH ×2 (09:52→20:40)
[2020-03-04] MEDS: ENOXAPARIN 100MG/ML SYR SUBCUT SCH ×2 (09:52→20:35)
[2020-03-04] MEDS: FAMOTIDINE 20MG TABLET PO SCH ×2 (09:52→21:20)
[2020-03-04] MEDS: DEXAMETHASONE 10 MG/ML VIAL IV SCH (09:52)
[2020-03-04] MEDS: ZINC SULFATE 220 MG ( 50 ) CAPSULE PO SCH (09:52)
[2020-03-04] MEDS: ASCORBIC ACID 500 MG TABLET PO SCH ×2 (09:52→20:35)
[2020-03-04] MEDS: ACETAMINOPHEN 650MG/20.3ML UDC NG PRN ×3 (09:52→20:40)
[2020-03-04 10:22] LABS: BG BASE EXCESS 6.6 mmol/L (-2.0-2.0); BG CARBOXYHEMOGLOBIN 0.6 % (0.5-1.5); BG DEOXYHEMOGLOBIN 3.8 % (0.0-5.0); BG FRACTION INSPIRED OXYGEN 100; BG HCO3 ACT 33.7 mmol/L (22.0-26.0); BG METHEMOGLOBIN 0.2 % (0.0-1.5); BG OXYGEN SATURATION 96.2 % (92.0-98.5); BG OXYHEMOGLOBIN 95.4 % (94.0-97.0); BG PCO2 58.3 mmHg (35.0-45.0); BG PO2 85.9 mmHg (75.0-100.0); BG SAMPLE SITE RIGHT RADIAL; BG TIDAL VOLUME(mL) 450 mL; BG TOTAL HEMOGLOBIN 14.7 g/dL (12.0-18.0); BG VENT MODE VENT - A/C; BG VENT RATE 16 set
[2020-03-04] MEDS: PHENYLEPHRINE 40 MG in DEXT 5% WATER 246 ML IV PRN (12:24)
[2020-03-04] MEDS: DILTIAZEM HCL 125 MG in DEXT 5% WATER 100 ML IV PRN (12:24)
[2020-03-04] MEDS ORDERED: DIGOXIN 500MCG/2ML AMP IV SCH (16:15)
[2020-03-04 17:08] LABS: BG CARBOXYHEMOGLOBIN 0.7 % (0.5-1.5); BG DEOXYHEMOGLOBIN 19.8 % (0.0-5.0); BG FRACTION INSPIRED OXYGEN 100; BG HCO3 ACT 33.1 mmol/L (22.0-26.0); BG METHEMOGLOBIN 0.2 % (0.0-1.5); BG OXYHEMOGLOBIN 79.3 % (94.0-97.0); BG PCO2 70.4 mmHg (35.0-45.0); BG PO2 47.9 mmHg (75.0-100.0); BG SAMPLE SITE RIGHT RADIAL; BG TIDAL VOLUME(mL) 450 mL; BG TOTAL HEMOGLOBIN 15.1 g/dL (12.0-18.0); BG VENT MODE VENT - A/C; BG VENT RATE 16 set
[2020-03-04] MEDS: VANCOMYCIN 1 G PREMIX 200 ML IV SCH (18:00)
[2020-03-04 19:34] LABS: BG CARBOXYHEMOGLOBIN 0.9 % (0.5-1.5); BG FRACTION INSPIRED OXYGEN 100; BG HCO3 ACT 30.8 mmol/L (22.0-26.0); BG METHEMOGLOBIN 0.3 % (0.0-1.5); BG OXYGEN SATURATION 76.7 % (92.0-98.5); BG OXYHEMOGLOBIN 75.8 % (94.0-97.0); BG PCO2 72.1 mmHg (35.0-45.0); BG PH 7.248 (7.350-7.450); BG PO2 45.8 mmHg (75.0-100.0); BG SAMPLE SITE RIGHT RADIAL; BG TIDAL VOLUME(mL) 450 mL; BG TOTAL HEMOGLOBIN 16.1 g/dL (12.0-18.0); BG VENT MODE VENT - A/C; BG VENT RATE 22 set
[2020-03-04] MEDS ORDERED: DIGOXIN 500MCG/2ML AMP IV NR (19:53)
[2020-03-04 20:03] LABS: HEMATOCRIT 44.5 % (42.0-52.0); HEMOGLOBIN 14.9 g/dL (14.0-18.0)
[2020-03-04] MEDS ORDERED: AMIODARONE HCL 900 MG in DEXT 5% WATER 482 ML IV PRN (22:15)
[2020-03-04 22:58] LABS: BG BASE EXCESS 0.6 mmol/L (-2.0-2.0); BG CARBOXYHEMOGLOBIN 0.9 % (0.5-1.5); BG DEOXYHEMOGLOBIN 23.4 % (0.0-5.0); BG FRACTION INSPIRED OXYGEN 100; BG HCO3 ACT 31.7 mmol/L (22.0-26.0); BG METHEMOGLOBIN 0.3 % (0.0-1.5); BG OXYGEN SATURATION 76.3 % (92.0-98.5); BG OXYHEMOGLOBIN 75.4 % (94.0-97.0); BG PCO2 85.4 mmHg (35.0-45.0); BG PH 7.188 (7.350-7.450); BG PO2 46.8 mmHg (75.0-100.0); BG SAMPLE SITE RIGHT RADIAL; BG TIDAL VOLUME(mL) 450 mL; BG TOTAL HEMOGLOBIN 15.2 g/dL (12.0-18.0); BG VENT MODE VENT- PRVC; BG VENT RATE 30 set
[2020-03-05] VITALS (97 sets, daily range): BP systolic 62–150; BP diastolic 34–97
[2020-03-05] MEDS ORDERED: SODIUM BICARBONATE 8.4% 1 MEQ/ML 50ML SYR IV NR
[2020-03-05] MEDS: BLOOD SUGAR DIAGNOSTIC STRIP TEST SCH ×4 (00:47→17:15)
[2020-03-05] MEDS: INSULIN LISPRO 100 UNITS/ML SUBCUT SCH ×4 (01:16→17:26)
[2020-03-05] MEDS: FENTANYL CITRATE/PF 1,000 MCG in SODIUM CHLORIDE 0.9% 80 ML IV PRN ×3 (01:18→17:14)
[2020-03-05] MEDS: IPRATROPIUM/ALBUTEROL 0.5-3(2.5)MG/3ML NEB HHN SCH ×4 (01:25→20:50)
[2020-03-05 01:43] LABS: HEMATOCRIT 40.1 % (42.0-52.0); HEMOGLOBIN 13.4 g/dL (14.0-18.0)
[2020-03-05] MEDS: PROPOFOL 10MG/ML 100ML 100 ML IV PRN ×4 (03:35→19:53)
[2020-03-05] MEDS: CEFEPIME 1,000 MG in DEXTROSE 5% WATER 50 ML IV SCH (03:36)
[2020-03-05] MEDS: VANCOMYCIN 1 G PREMIX 200 ML IV SCH (05:42)
[2020-03-05 05:52] LABS: HEMATOCRIT. 40.3 % (42.0-52.0); HEMOGLOBIN. 13.5 g/dL (14.0-18.0); MEAN CORPUSCULAR HEMOGLOBIN 30.6 pg (28.0-32.0); MEAN CORPUSCULAR VOLUME 91.6 fL (80.0-94.0); MEAN PLATELET VOLUME 9.8 fl (7.4-10.4); PLATELET 214 x1000/uL (130-400); RED CELL DISTRIBUTION WIDTH 13.4 % (11.6-14.6)
[2020-03-05] MEDS: DILTIAZEM HCL 30MG TABLET PO SCH ×3 (06:20→22:02)
[2020-03-05 08:44] LABS: PLATELET ESTIMATE NORMAL
[2020-03-05] MEDS: ZINC SULFATE 220 MG ( 50 ) CAPSULE PO SCH (08:54)
[2020-03-05] MEDS: PANTOPRAZOLE 80 MG in SODIUM CHLORIDE 0.9% 100 ML IV SCH ×2 (08:54→14:05)
[2020-03-05] MEDS: DEXAMETHASONE 10 MG/ML VIAL IV SCH (08:54)
[2020-03-05] MEDS: FAMOTIDINE 20MG TABLET PO SCH ×2 (08:55→20:50)
[2020-03-05] MEDS: ASCORBIC ACID 500 MG TABLET PO SCH ×2 (08:55→20:50)
[2020-03-05] MEDS: ENOXAPARIN 100MG/ML SYR SUBCUT SCH (09:00)
[2020-03-05] MEDS: ASPIRIN 81MG TABLET NG SCH ×2 (09:00→20:40)
[2020-03-05] MEDS ORDERED: SODIUM POLYSTYRENE SULFONATE 15 G/60 ML BOT PO NR (09:00)
[2020-03-05] MEDS: GUAIFENESIN/DM 600MG/30MG ER TAB 12HR PO SCH ×2 (09:00→20:40)
[2020-03-05] MEDS ORDERED: VASOPRESSIN 10 UNIT in SODIUM CHLORIDE 0.9% 99.5 ML IV PRN (11:30)
[2020-03-05 12:17] LABS: BG BASE EXCESS 3.5 mmol/L (-2.0-2.0); BG CARBOXYHEMOGLOBIN 0.8 % (0.5-1.5); BG DEOXYHEMOGLOBIN 3.8 % (0.0-5.0); BG FRACTION INSPIRED OXYGEN 100; BG HCO3 ACT 31.5 mmol/L (22.0-26.0); BG METHEMOGLOBIN 0.2 % (0.0-1.5); BG OXYGEN SATURATION 96.2 % (92.0-98.5); BG OXYHEMOGLOBIN 95.2 % (94.0-97.0); BG PH 7.317 (7.350-7.450); BG PO2 87.7 mmHg (75.0-100.0); BG SAMPLE SITE RIGHT BRACHIAL; BG TIDAL VOLUME(mL) 450 mL; BG TOTAL HEMOGLOBIN 14.3 g/dL (12.0-18.0); BG VENT MODE VENT- PRVC; BG VENT RATE 30 set
[2020-03-05] MEDS: ACETAMINOPHEN 650MG/20.3ML UDC NG PRN ×2 (12:44→17:41)
[2020-03-05] MEDS ORDERED: LIDOCAINE HCL 1% 20ML VIAL (Pyxis) INJ ONE (13:18)
[2020-03-05] MEDS: PHENYLEPHRINE 40 MG in DEXT 5% WATER 246 ML IV PRN ×2 (14:07→18:41)
[2020-03-05] MEDS: DIGOXIN 500MCG/2ML AMP IV SCH ×3 (15:17→20:50)
[2020-03-05 17:11] LABS: BG BASE EXCESS 2.8 mmol/L (-2.0-2.0); BG CARBOXYHEMOGLOBIN 0.5 % (0.5-1.5); BG DEOXYHEMOGLOBIN 6.9 % (0.0-5.0); BG FRACTION INSPIRED OXYGEN 100; BG HCO3 ACT 29.8 mmol/L (22.0-26.0); BG METHEMOGLOBIN 0.3 % (0.0-1.5); BG OXYHEMOGLOBIN 92.3 % (94.0-97.0); BG PH 7.344 (7.350-7.450); BG SAMPLE SITE RIGHT RADIAL; BG TIDAL VOLUME(mL) 450 mL; BG VENT MODE VENT - A/C PRVC; BG VENT RATE 30 set
[2020-03-05] MEDS: MEROPENEM 500 MG in SODIUM CHLORIDE 0.9% 50 ML IV SCH (17:14)
[2020-03-05] MEDS: COLISTIMETHATE SODIUM 150MG/VIAL INH SCH (17:27)
[2020-03-06] VITALS (97 sets, daily range): BP systolic 83–157; BP diastolic 37–91
[2020-03-06] MEDS: PHENYLEPHRINE 40 MG in DEXT 5% WATER 246 ML IV PRN ×4 (00:48→18:24)
[2020-03-06] MEDS: BLOOD SUGAR DIAGNOSTIC STRIP TEST SCH ×4 (00:52→18:00)
[2020-03-06] MEDS: IPRATROPIUM/ALBUTEROL 0.5-3(2.5)MG/3ML NEB HHN SCH ×4 (00:55→21:45)
[2020-03-06] MEDS: ACETAMINOPHEN 650MG/20.3ML UDC NG PRN ×3 (00:58→23:14)
[2020-03-06] MEDS: INSULIN LISPRO 100 UNITS/ML SUBCUT SCH ×4 (00:59→18:19)
[2020-03-06] MEDS: PROPOFOL 10MG/ML 100ML 100 ML IV PRN ×6 (01:11→23:12)
[2020-03-06] MEDS: PANTOPRAZOLE 80 MG in SODIUM CHLORIDE 0.9% 100 ML IV SCH (02:16)
[2020-03-06] MEDS: MEROPENEM 500 MG in SODIUM CHLORIDE 0.9% 50 ML IV SCH ×2 (04:30→16:08)
[2020-03-06] MEDS: COLISTIMETHATE SODIUM 150MG/VIAL INH SCH ×3 (05:00→21:55)
[2020-03-06 05:40] LABS: HEMOGLOBIN. 13.1 g/dL (14.0-18.0); MEAN CORPUSCULAR HEMOGLOBIN 30.8 pg (28.0-32.0); MEAN CORPUSCULAR VOLUME 91.6 fL (80.0-94.0); MEAN PLATELET VOLUME 10.3 fl (7.4-10.4); PLATELET 250 x1000/uL (130-400); RED BLOOD CELL COUNT 4.25 mill/uL (4.7-6.1); RED CELL DISTRIBUTION WIDTH 13.4 % (11.6-14.6)
[2020-03-06] MEDS: DILTIAZEM HCL 30MG TABLET PO SCH ×3 (05:46→23:09)
[2020-03-06 05:55] LABS: CHLORIDE 90 mEq/L (98-107)
[2020-03-06 06:31] LABS: DIGOXIN 2.9 ng/mL (0.9-2.0)
[2020-03-06] MEDS: ASCORBIC ACID 500 MG TABLET PO SCH ×2 (08:34→21:00)
[2020-03-06] MEDS: FAMOTIDINE 20MG TABLET PO SCH ×2 (08:34→23:08)
[2020-03-06] MEDS: DEXAMETHASONE 10 MG/ML VIAL IV SCH (08:34)
[2020-03-06] MEDS: ZINC SULFATE 220 MG ( 50 ) CAPSULE PO SCH (08:34)
[2020-03-06] MEDS: GUAIFENESIN/DM 600MG/30MG ER TAB 12HR PO SCH (09:00)
[2020-03-06] MEDS: ASPIRIN 81MG TABLET NG SCH (09:00)
[2020-03-06] MEDS ORDERED: PANTOPRAZOLE 80 MG in SODIUM CHLORIDE 0.9% 100 ML IV SCH (10:00)
[2020-03-06 10:35] LABS: NUCLEATED RED BLOOD CELLS 2 /100 WBC
[2020-03-06 10:36] LABS: PLATELET ESTIMATE NORMAL
[2020-03-06] MEDS: DILTIAZEM HCL 125 MG in DEXT 5% WATER 100 ML IV PRN (10:39)
[2020-03-06] MEDS ORDERED: BISACODYL 10MG SUPP PR PRN (10:45)
[2020-03-06] MEDS ORDERED: BISACODYL 10MG SUPP PR NR (10:45)
[2020-03-06] MEDS: FENTANYL CITRATE/PF 1,000 MCG in SODIUM CHLORIDE 0.9% 80 ML IV PRN ×2 (12:17→18:59)
[2020-03-06] MEDS: METOCLOPRAMIDE HCL 10MG/2ML VIAL IV SCH ×3 (12:21→23:09)
[2020-03-06] MEDS: PANTOPRAZOLE SODIUM 40 MG/VIAL IV SCH ×2 (12:49→23:08)
[2020-03-06] MEDS: ONDANSETRON HCL 4MG/2ML INJ IV PRN (23:12)
[2020-03-06] MEDS: GUAIFENESIN 200MG/10ML SUGAR FREE UDC PO PRN (23:14)
[2020-03-07] VITALS (98 sets, daily range): BP systolic 83–170; BP diastolic 46–113
[2020-03-07] MEDS: PROPOFOL 10MG/ML 100ML 100 ML IV PRN ×2 (02:07→06:15)
[2020-03-07] MEDS: MEROPENEM 500 MG in SODIUM CHLORIDE 0.9% 50 ML IV SCH ×2 (04:48→16:38)
[2020-03-07 05:47] LABS: HEMATOCRIT. 34.7 % (42.0-52.0); HEMOGLOBIN. 11.7 g/dL (14.0-18.0); MEAN CORPUSCULAR HEMOGLOBIN 30.9 pg (28.0-32.0); MEAN CORPUSCULAR VOLUME 91.5 fL (80.0-94.0); MEAN PLATELET VOLUME 9.7 fl (7.4-10.4); PLATELET 173 x1000/uL (130-400); RED CELL DISTRIBUTION WIDTH 13.3 % (11.6-14.6)
[2020-03-07] MEDS: METOCLOPRAMIDE HCL 10MG/2ML VIAL IV SCH ×4 (06:00→21:06)
[2020-03-07] MEDS: BLOOD SUGAR DIAGNOSTIC STRIP TEST SCH ×4 (06:00→16:38)
[2020-03-07] MEDS: INSULIN LISPRO 100 UNITS/ML SUBCUT SCH ×4 (06:00→16:42)
[2020-03-07] MEDS: ONDANSETRON HCL 4MG/2ML INJ IV PRN ×2 (06:10→21:06)
[2020-03-07] MEDS: GUAIFENESIN 200MG/10ML SUGAR FREE UDC PO PRN ×2 (06:11→21:07)
[2020-03-07] MEDS: ACETAMINOPHEN 650MG/20.3ML UDC NG PRN ×3 (06:11→21:10)
[2020-03-07] MEDS: DILTIAZEM HCL 30MG TABLET PO SCH ×2 (06:13→13:00)
[2020-03-07 07:49] LABS: CHLORIDE 101 mEq/L (98-107)
[2020-03-07] MEDS: ASCORBIC ACID 500 MG TABLET PO SCH ×2 (08:20→21:03)
[2020-03-07] MEDS: PANTOPRAZOLE SODIUM 40 MG/VIAL IV SCH ×2 (08:20→21:02)
[2020-03-07] MEDS: ZINC SULFATE 220 MG ( 50 ) CAPSULE PO SCH (08:20)
[2020-03-07] MEDS: DEXAMETHASONE 10 MG/ML VIAL IV SCH (08:20)
[2020-03-07] MEDS: IPRATROPIUM/ALBUTEROL 0.5-3(2.5)MG/3ML NEB HHN SCH ×3 (08:21→20:21)
[2020-03-07] MEDS: COLISTIMETHATE SODIUM 150MG/VIAL INH SCH ×2 (08:21→20:21)
[2020-03-07 09:19] LABS: NUCLEATED RED BLOOD CELLS 3 /100 WBC; PLATELET ESTIMATE NORMAL
[2020-03-07 09:40] LABS: BG BASE EXCESS -1.1 mmol/L (-2.0-2.0); BG CARBOXYHEMOGLOBIN 0.5 % (0.5-1.5); BG DEOXYHEMOGLOBIN 4.8 % (0.0-5.0); BG FRACTION INSPIRED OXYGEN 90; BG HCO3 ACT 22.9 mmol/L (22.0-26.0); BG METHEMOGLOBIN 0.2 % (0.0-1.5); BG OXYGEN SATURATION 95.2 % (92.0-98.5); BG OXYHEMOGLOBIN 94.5 % (94.0-97.0); BG PCO2 35.9 mmHg (35.0-45.0); BG PH 7.423 (7.350-7.450); BG PO2 76.5 mmHg (75.0-100.0); BG SAMPLE SITE RIGHT RADIAL; BG TIDAL VOLUME(mL) 450 mL; BG TOTAL HEMOGLOBIN 11.1 g/dL (12.0-18.0); BG VENT MODE VENT- PRVC; BG VENT RATE 30 set
[2020-03-07] MEDS ORDERED: NA PHOS,M-B/NA PHOS,DI-BA ENEMA 118ML PR PRN (11:30)
[2020-03-07] MEDS: FENTANYL CITRATE/PF 1,000 MCG in SODIUM CHLORIDE 0.9% 80 ML IV PRN ×2 (12:52→21:09)
[2020-03-07] MEDS: MIDAZOLAM HCL 100 MG in DEXT 5% WATER 80 ML IV PRN (13:10)
[2020-03-07] MEDS ORDERED: DILTIAZEM HCL 5MG/ML 5ML VIAL IV NR ×2 (13:54→14:30)
[2020-03-07] MEDS ORDERED: DOCUSATE SODIUM SUGAR FREE 100MG/10ML UDC NG PRN (14:32)
[2020-03-07] MEDS: DILTIAZEM HCL 125 MG in DEXT 5% WATER 100 ML IV PRN (15:23)
[2020-03-07] MEDS: DILTIAZEM HCL 60MG TABLET PO SCH (21:04)
[2020-03-08] VITALS (96 sets, daily range): BP systolic 54–154; BP diastolic 32–72
[2020-03-08] MEDS: DILTIAZEM HCL 125 MG in DEXT 5% WATER 100 ML IV PRN ×3 (00:01→17:06)
[2020-03-08] MEDS: IPRATROPIUM/ALBUTEROL 0.5-3(2.5)MG/3ML NEB HHN SCH ×2 (00:59→09:16)
[2020-03-08] MEDS: MIDAZOLAM HCL 100 MG in DEXT 5% WATER 80 ML IV PRN ×4 (01:14→21:38)
[2020-03-08] MEDS: FENTANYL CITRATE/PF 1,000 MCG in SODIUM CHLORIDE 0.9% 80 ML IV PRN ×3 (01:17→18:02)
[2020-03-08] MEDS: MEROPENEM 500 MG in SODIUM CHLORIDE 0.9% 50 ML IV SCH ×2 (05:00→17:07)
[2020-03-08] MEDS: DILTIAZEM HCL 60MG TABLET PO SCH ×3 (05:00→21:01)
[2020-03-08] MEDS: INSULIN LISPRO 100 UNITS/ML SUBCUT SCH ×5 (05:01→23:12)
[2020-03-08] MEDS: METOCLOPRAMIDE HCL 10MG/2ML VIAL IV SCH ×4 (05:01→23:11)
[2020-03-08] MEDS: ONDANSETRON HCL 4MG/2ML INJ IV PRN (05:03)
[2020-03-08] MEDS: GUAIFENESIN 200MG/10ML SUGAR FREE UDC PO PRN (05:03)
[2020-03-08 05:48] LABS: HEMATOCRIT. 35.7 % (42.0-52.0); HEMOGLOBIN. 11.8 g/dL (14.0-18.0); MEAN CORPUSCULAR HEMOGLOBIN 30.4 pg (28.0-32.0); MEAN CORPUSCULAR VOLUME 91.5 fL (80.0-94.0); PLATELET 158 x1000/uL (130-400); RED CELL DISTRIBUTION WIDTH 13.6 % (11.6-14.6)
[2020-03-08 06:00] LABS: PHOSPHORUS 6.2 mg/dL (2.5-4.9)
[2020-03-08] MEDS: BLOOD SUGAR DIAGNOSTIC STRIP TEST SCH ×4 (06:00→18:01)
[2020-03-08] MEDS: PANTOPRAZOLE SODIUM 40 MG/VIAL IV SCH ×2 (08:45→21:01)
[2020-03-08] MEDS: DEXAMETHASONE 10 MG/ML VIAL IV SCH (08:45)
[2020-03-08] MEDS: ASCORBIC ACID 500 MG TABLET PO SCH ×2 (08:46→21:01)
[2020-03-08] MEDS: ZINC SULFATE 220 MG ( 50 ) CAPSULE PO SCH (08:46)
[2020-03-08] MEDS ORDERED: SODIUM POLYSTYRENE SULFONATE 15 G/60 ML BOT NG SCH (09:00)
[2020-03-08] MEDS: COLISTIMETHATE SODIUM 150MG/VIAL INH SCH ×2 (09:16→20:56)
[2020-03-08 09:55] LABS: BG BASE EXCESS -1.6 mmol/L (-2.0-2.0); BG CARBOXYHEMOGLOBIN 0.8 % (0.5-1.5); BG DEOXYHEMOGLOBIN 9.3 % (0.0-5.0); BG FRACTION INSPIRED OXYGEN 90; BG HCO3 ACT 26.3 mmol/L (22.0-26.0); BG METHEMOGLOBIN 0.4 % (0.0-1.5); BG OXYGEN SATURATION 90.6 % (92.0-98.5); BG OXYHEMOGLOBIN 89.5 % (94.0-97.0); BG PCO2 58.8 mmHg (35.0-45.0); BG PH 7.268 (7.350-7.450); BG PO2 66.1 mmHg (75.0-100.0); BG SAMPLE SITE RIGHT RADIAL; BG TIDAL VOLUME(mL) 450 mL; BG TOTAL HEMOGLOBIN 12.8 g/dL (12.0-18.0); BG VENT MODE VENT- PRVC; BG VENT RATE 30 set
[2020-03-08 10:51] LABS: NUCLEATED RED BLOOD CELLS 13 /100 WBC; PLATELET ESTIMATE NORMAL
[2020-03-08] MEDS: IPRATROPIUM BROMIDE (0.02%) 0.5MG/2.5ML NEB HHN SCH ×2 (12:56→21:23)
[2020-03-08] MEDS: ACETAMINOPHEN 650MG/20.3ML UDC NG PRN (18:21)
[2020-03-08] MEDS: PHENYLEPHRINE 40 MG in DEXT 5% WATER 246 ML IV PRN (21:01)
[2020-03-09] VITALS (88 sets, daily range): BP systolic 101–143; BP diastolic 54–89
[2020-03-09] MEDS: IPRATROPIUM BROMIDE (0.02%) 0.5MG/2.5ML NEB HHN SCH ×4 (01:01→21:27)
[2020-03-09 05:15] LABS: MEAN CORPUSCULAR HEMOGLOBIN 30.5 pg (28.0-32.0); MEAN CORPUSCULAR VOLUME 91.2 fL (80.0-94.0); PLATELET 118 x1000/uL (130-400); RED BLOOD CELL COUNT 3.95 mill/uL (4.7-6.1); RED CELL DISTRIBUTION WIDTH 13.7 % (11.6-14.6)
[2020-03-09] MEDS: MEROPENEM 500 MG in SODIUM CHLORIDE 0.9% 50 ML IV SCH ×2 (05:35→17:00)
[2020-03-09] MEDS: METOCLOPRAMIDE HCL 10MG/2ML VIAL IV SCH ×3 (05:36→18:36)
[2020-03-09] MEDS: FENTANYL CITRATE/PF 1,000 MCG in SODIUM CHLORIDE 0.9% 80 ML IV PRN ×2 (05:36→13:09)
[2020-03-09] MEDS: DILTIAZEM HCL 60MG TABLET PO SCH ×3 (05:37→21:44)
[2020-03-09] MEDS: INSULIN LISPRO 100 UNITS/ML SUBCUT SCH ×3 (05:38→18:37)
[2020-03-09 05:54] LABS: PHOSPHORUS 8.1 mg/dL (2.5-4.9)
[2020-03-09] MEDS: MIDAZOLAM HCL 100 MG in DEXT 5% WATER 80 ML IV PRN ×2 (07:49→19:33)
[2020-03-09 09:32] LABS: BG BASE EXCESS -2.9 mmol/L (-2.0-2.0); BG CARBOXYHEMOGLOBIN 0.3 % (0.5-1.5); BG DEOXYHEMOGLOBIN 8.2 % (0.0-5.0); BG FRACTION INSPIRED OXYGEN 100; BG HCO3 ACT 22.6 mmol/L (22.0-26.0); BG METHEMOGLOBIN 0.3 % (0.0-1.5); BG OXYGEN SATURATION 91.8 % (92.0-98.5); BG OXYHEMOGLOBIN 91.2 % (94.0-97.0); BG PCO2 41.7 mmHg (35.0-45.0); BG PH 7.351 (7.350-7.450); BG PO2 66.3 mmHg (75.0-100.0); BG SAMPLE SITE RIGHT RADIAL; BG TIDAL VOLUME(mL) 500 mL; BG TOTAL HEMOGLOBIN 12.7 g/dL (12.0-18.0); BG VENT MODE VENT - A/C; BG VENT RATE 30 set
[2020-03-09] MEDS: PANTOPRAZOLE SODIUM 40 MG/VIAL IV SCH ×2 (09:46→21:43)
[2020-03-09] MEDS: ASCORBIC ACID 500 MG TABLET PO SCH ×2 (09:46→21:43)
[2020-03-09] MEDS: ZINC SULFATE 220 MG ( 50 ) CAPSULE PO SCH (09:46)
[2020-03-09] MEDS: COLISTIMETHATE SODIUM 150MG/VIAL INH SCH ×2 (10:43→21:26)
[2020-03-09] MEDS: BLOOD SUGAR DIAGNOSTIC STRIP TEST SCH ×3 (12:00→18:37)
[2020-03-09 12:44] LABS: NUCLEATED RED BLOOD CELLS 1 /100 WBC; PLATELET ESTIMATE DECREASED
[2020-03-10] VITALS (92 sets, daily range): BP systolic 76–145; BP diastolic 53–74
[2020-03-10] MEDS: BLOOD SUGAR DIAGNOSTIC STRIP TEST SCH ×4 (00:08→17:20)
[2020-03-10] MEDS: FENTANYL CITRATE/PF 1,000 MCG in SODIUM CHLORIDE 0.9% 80 ML IV PRN ×4 (00:09→20:28)
[2020-03-10] MEDS: INSULIN LISPRO 100 UNITS/ML SUBCUT SCH ×4 (00:16→17:30)
[2020-03-10] MEDS: METOCLOPRAMIDE HCL 10MG/2ML VIAL IV SCH ×4 (00:16→17:29)
[2020-03-10] MEDS: IPRATROPIUM BROMIDE (0.02%) 0.5MG/2.5ML NEB HHN SCH ×6 (00:52→23:46)
[2020-03-10] MEDS: DILTIAZEM HCL 60MG TABLET PO SCH ×3 (06:12→22:00)
[2020-03-10 06:13] LABS: CHLORIDE 99 mEq/L (98-107)
[2020-03-10] MEDS: ACETAMINOPHEN 650MG/20.3ML UDC NG PRN (06:20)
[2020-03-10 06:42] LABS: D-DIMER 19.56 mg/L FEU (<0.50)
[2020-03-10 07:13] LABS: PHOSPHORUS 10.3 mg/dL (2.5-4.9)
[2020-03-10 08:57] LABS: BG CARBOXYHEMOGLOBIN 0.4 % (0.5-1.5); BG DEOXYHEMOGLOBIN 4.4 % (0.0-5.0); BG FRACTION INSPIRED OXYGEN 100; BG METHEMOGLOBIN 0.4 % (0.0-1.5); BG OXYGEN SATURATION 95.6 % (92.0-98.5); BG OXYHEMOGLOBIN 94.8 % (94.0-97.0); BG PCO2 51.8 mmHg (35.0-45.0); BG PH 7.301 (7.350-7.450); BG PO2 92.5 mmHg (75.0-100.0); BG SAMPLE SITE RIGHT RADIAL; BG TIDAL VOLUME(mL) 500 mL; BG TOTAL HEMOGLOBIN 12.8 g/dL (12.0-18.0); BG VENT MODE VENT - PRVC; BG VENT RATE 30 set
[2020-03-10] MEDS ORDERED: ENOXAPARIN 100MG/ML SYR SUBCUT SCH (09:00)
[2020-03-10] MEDS: COLISTIMETHATE SODIUM 150MG/VIAL INH SCH (09:07)
[2020-03-10] MEDS: PANTOPRAZOLE SODIUM 40 MG/VIAL IV SCH ×2 (09:15→22:38)
[2020-03-10] MEDS: ASCORBIC ACID 500 MG TABLET PO SCH ×2 (09:15→22:38)
[2020-03-10] MEDS: ZINC SULFATE 220 MG ( 50 ) CAPSULE PO SCH (09:15)
[2020-03-10 10:00] LABS: HEMATOCRIT. 35.4 % (42.0-52.0); HEMOGLOBIN. 11.8 g/dL (14.0-18.0); MEAN CORPUSCULAR HEMOGLOBIN 30.2 pg (28.0-32.0); MEAN CORPUSCULAR VOLUME 90.5 fL (80.0-94.0); MEAN PLATELET VOLUME 10.4 fl (7.4-10.4); PLATELET 138 x1000/uL (130-400); RED BLOOD CELL COUNT 3.91 mill/uL (4.7-6.1); RED CELL DISTRIBUTION WIDTH 14.1 % (11.6-14.6)
[2020-03-10 11:44] LABS: NUCLEATED RED BLOOD CELLS 6 /100 WBC; PLATELET ESTIMATE NORMAL
[2020-03-10] MEDS ORDERED: SULFAMETHOXAZOLE/TRIMETHOPRIM 800/160MG TABLET PO SCH (12:30)
[2020-03-10] MEDS ORDERED: MEROPENEM 500MG in NORMAL SALINE 50ML IV SCH (14:00)
[2020-03-10] MEDS: MIDAZOLAM HCL 100 MG in DEXT 5% WATER 80 ML IV PRN (15:49)
[2020-03-10] MEDS: PHENYLEPHRINE 40 MG in DEXT 5% WATER 246 ML IV PRN (23:52)
[2020-03-11] VITALS: BP 88/60
[2020-03-11 00:01] VITALS: BP 89/36
[2020-03-11] MEDS: BLOOD SUGAR DIAGNOSTIC STRIP TEST SCH (00:07)
[2020-03-11] MEDS: METOCLOPRAMIDE HCL 10MG/2ML VIAL IV SCH (00:13)
[2020-03-11] MEDS: INSULIN LISPRO 100 UNITS/ML SUBCUT SCH (00:14)
[2020-03-11 00:15] VITALS: BP 99/63
[2020-03-11 00:30] VITALS: BP 81/52
[2020-03-11 01:00] VITALS: BP 137/58
[2020-03-11 01:15] VITALS: BP 119/47
[2020-03-11] MEDS ORDERED: ALTEPLASE 2MG/VIAL ITC SCH (02:00)
[2020-03-11] MEDS ORDERED: ADENOSINE 3 MG/ML 2ML VIAL IV ONE (02:00)
[2020-03-11] MEDS ORDERED: CALCIUM CHLORIDE 1GM/10ML SYR IV ONE (02:00)
[2020-03-11] MEDS ORDERED: LIDOCAINE HCL 2% 5ML SYRINGE IV ONE (02:00)
[2020-03-11] MEDS ORDERED: SODIUM BICARBONATE 8.4% MEQ/ML 50ML VIAL IV ONE (02:00)
[2020-03-11] MEDS ORDERED: MAGNESIUM SULFATE 4G IN WATER 100ML PREMIX IV ONE (02:00)
[2020-03-11] MEDS ORDERED: EPINEPHRINE 0.1MG/ML (1:10,000) 10ML SYR ONE (02:00)
== END 2020-03-11 01:48 | disposition expired | DRG 870 ==
LOC: ER 18:41 → MICUSO 20:54 → EDBEDREQ 20:57 → EDBEDREQSVC 20:57 → EDBEDREQTM 20:57 → MICUSO 02-24 16:59 → 7WST 02-26 14:15 → MICUSO 02-27 18:15
PROVIDERS: ADMIT Internal Medicine; ATTEND Internal Medicine
PROC: 5A09357 Assistance with Respiratory Ventilation, Less than 24 Consecutive Hours, Continuous Positive Airway Pressure (ICD-10-PCS; 2020-02-23)
PROC: 5A1955Z Respiratory Ventilation, Greater than 96 Consecutive Hours (ICD-10-PCS; principal; 2020-02-27)
PROC: 0BH17EZ Insertion of Endotracheal Airway into Trachea, Via Natural or Artificial Opening (ICD-10-PCS; 2020-02-27)
PROC: 05H333Z Insertion of Infusion Device into Right Innominate Vein, Percutaneous Approach (ICD-10-PCS; 2020-02-28)
PROC: B54MZZA Ultrasonography of Right Upper Extremity Veins, Guidance (ICD-10-PCS; 2020-02-28)
PROC: 30233K1 Transfusion of Nonautologous Frozen Plasma into Peripheral Vein, Percutaneous Approach (ICD-10-PCS; 2020-02-29)
PROC: 02HV33Z Insertion of Infusion Device into Superior Vena Cava, Percutaneous Approach (ICD-10-PCS; 2020-03-05)
PROC: B548ZZA Ultrasonography of Superior Vena Cava, Guidance (ICD-10-PCS; 2020-03-05)
PROC: 5A1D70Z Performance of Urinary Filtration, Intermittent, Less than 6 Hours Per Day (ICD-10-PCS; 2020-03-05)
PROC: 5A1D70Z Performance of Urinary Filtration, Intermittent, Less than 6 Hours Per Day (ICD-10-PCS; 2020-03-06)
PROC: 5A1D70Z Performance of Urinary Filtration, Intermittent, Less than 6 Hours Per Day (ICD-10-PCS; 2020-03-07)
PROC: 5A1D70Z Performance of Urinary Filtration, Intermittent, Less than 6 Hours Per Day (ICD-10-PCS; 2020-03-09)
PROC: 5A1D70Z Performance of Urinary Filtration, Intermittent, Less than 6 Hours Per Day (ICD-10-PCS; 2020-03-10)
PROC: 5A12012 Performance of Cardiac Output, Single, Manual (ICD-10-PCS; 2020-03-11)
DX: A41.89 Other specified sepsis (principal); U07.1 COVID-19; N17.0 Acute kidney failure with tubular necrosis; I50.43 Acute on chronic combined systolic (congestive) and diastolic (congestive) heart failure; J12.89 Other viral pneumonia; J96.01 Acute respiratory failure with hypoxia; E43 Unspecified severe protein-calorie malnutrition; D65 Disseminated intravascular coagulation [defibrination syndrome]; K29.61 Other gastritis with bleeding; E87.1 Hypo-osmolality and hyponatremia; I48.92 Unspecified atrial flutter; I13.0 Hypertensive heart and chronic kidney disease with heart failure and stage 1 through stage 4 chronic kidney disease, or unspecified chronic kidney disease; D68.59 Other primary thrombophilia; R65.20 Severe sepsis without septic shock; B97.89 Other viral agents as the cause of diseases classified elsewhere; E87.6 Hypokalemia; E78.00 Pure hypercholesterolemia, unspecified; D72.810 Lymphocytopenia; I48.0 Paroxysmal atrial fibrillation; E78.5 Hyperlipidemia, unspecified; D64.9 Anemia, unspecified; I46.9 Cardiac arrest, cause unspecified; E87.5 Hyperkalemia; N18.9 Chronic kidney disease, unspecified; E11.22 Type 2 diabetes mellitus with diabetic chronic kidney disease; J43.9 Emphysema, unspecified; Z79.4 Long term (current) use of insulin; Z68.31 Body mass index [BMI] 31.0-31.9, adult
CPT/HCPCS: 36415; 36600; 71045; 74018; 76937; 80048; 80053; 80061; 80076; 80162; 80202; 80305; 81003; 82270; 82375; 82550; 82553; 82728; 82805; 82962; 83036; 83615; 83735; 83880; 83970; 84100; 84145; 84443; 84478; 84484; 85014; 85018; 85025; 85379; 85384; 86140; 86850; 86900; 86927; 87070; 93005; 93970; 94002; 94003; 94640; 94660; 99291; C1725; C1752; C1769; C1887; C9113; J0153; J0282; J0456; J0692; J0770; J1100; J1160; J1650; J1815; J1940; J2185; J2250; J2370; J2405; J2704; J2765; J2997; J3010; J3370; J3475; J3480; J3490; J7050; J7060; J8540; P9017; Q9957; U0003-CS